=== PATIENT | male | born 1935 | race Hispanic/Latino ===

== ENCOUNTER 2018-10-14 22:13 | Inpatient (IN) | payer OTHER, MEDICARE ==
[~2018-10-14] VITALS: Ht 154.9 cm; Wt 86.5 kg
[~2018-10-14 22:13] MED LIST: ADV250 IH; ATOR40TA69 PO; CARV12.511 PO; GABA-529 PO; IRON PO; ISOS30TA6 PO; PANT40TA25 PO; TAMS0.4C32 PO
[2018-10-14 23:27] LABS: BASOPHILS % (AUTO) 0.1 % (0.0-5.0); EOSINOPHILS % (AUTO) 0.1 % (0.0-8.0); HEMATOCRIT 30.8 % (42-54); LYMPHOCYTES % (AUTO) 7.5 % (21.0-51.0); MEAN CORPUSCULAR HEMOGLOBIN 29.4 pg (27.0-33.0); MEAN CORPUSCULAR HGB CONC 33.2 g/dL (32.0-36.0); MEAN CORPUSCULAR VOLUME 88.5 fL (79-99); MONOCYTES % (AUTO) 9.7 % (3.0-13.0); NEUTROPHILS % (AUTO) 82.6 % (40.0-77.0); PLATELET COUNT (AUTO) 202 K/uL (130-400); RED BLOOD CELL COUNT(AUTO) 3.48 MIL/uL (4.50-6.20); RED CELL DISTRIBUTION WIDTH 13.9 % (11.0-15.5); WHITE BLOOD COUNT (AUTO) 21.3 K/uL (4.8-10.8)
[2018-10-14 23:35] LABS: CREATININE 1.8 mg/dL (0.5-1.5); POTASSIUM 4.4 mmol/L (3.5-5.1)
[2018-10-14 23:40] LABS: ALBUMIN 3.2 g/dL (3.5-5.0); BILIRUBIN,TOTAL 0.7 mg/dL (0.2-1.0)
[2018-10-14 23:48] LABS: APPEARANCE,URINE Clear (CLEAR); BILIRUBIN,URINE Negative (NEGATIVE); COLOR,URINE Yellow (YELLOW); GLUCOSE, URINE (UA) Negative (NEGATIVE); KETONES,URINE Negative (NEGATIVE); LEUKOCYTE ESTERASE ,URINE Negative (NEGATIVE); NITRATE,URINE Negative (NEGATIVE); OCCULT BLOOD,URINE Negative (NEGATIVE); PROTEIN,URINE 300 mg/dL (NEGATIVE); UROBILINOGEN,URINE 0.2 mg/dL (0.2-1.0)
[2018-10-15] MEDS ORDERED: ZOSYN 3.375GM+NS 50ML 50 ML IV ONE (00:07)
[2018-10-15 00:33] LABS: ERYTHROCYTE SEDIMENTATION RATE 92 MM/HR (0-20)
[2018-10-15] MEDS ORDERED: VANCOMYCIN 1GM+NS 250ML 250 ML IV ONE (01:01)
--- NOTE | 2018-10-15 02:37 | NUR ---
ADMISSION. PT TRANSFERRED VIA STRETCHER FROM ER INTO ROOM 310. PT AWAKE, ALERT AND RESPONSIVE AT THIS TIME. NO C/O PAIN OR DISCOMFORT NOTED. PT ORIENTED TO ROOM, CALL DIXON WITHIN REACH. Addendum: 10/15/18 at 0240 by ANNETTE ADAIR RN Amended: Links added.
[2018-10-15 02:44] VITALS: BP 136/68
[2018-10-15] MEDS ORDERED: RANO10003 PO (03:16)
[2018-10-15] MEDS ORDERED: ROSU20TA30 PO (03:16)
[2018-10-15] MEDS ORDERED: FURO20TA6 PO (03:16)
[2018-10-15] MEDS ORDERED: MONT10TA24 PO (03:16)
[2018-10-15] MEDS ORDERED: TRAZ-185 PO (03:16)
[2018-10-15] MEDS ORDERED: GLUCAGON 1MG KIT 1 MG ML IM PRN (03:30)
[2018-10-15] MEDS ORDERED: LABETALOL 20 MG/4 ML DISP.SYRIN IV PRN (03:30)
[2018-10-15] MEDS ORDERED: ACETAMINOPHEN 325 MG TAB PO PRN (03:30)
[2018-10-15] MEDS ORDERED: VANCOMYCIN PROTOCOL PER PHARMACY IV SCH (03:30)
[2018-10-15] MEDS ORDERED: ONDANSETRON HCL 4 MG/2 ML VIAL IVP PRN (03:30)
[2018-10-15] MEDS: SODIUM CHLORIDE 0.9% 1000ML 1,000 ML IV SCH ×3 (03:30→20:20)
[2018-10-15] MEDS ORDERED: DEXTROSE 50%-WATER 50 ML DISP.SYRIN IV PRN (03:30)
[2018-10-15] MEDS: INSULIN R PO SS1 SQ SCH ×2 (06:28→11:30)
[2018-10-15 08:32] VITALS: BP 126/70
[2018-10-15] MEDS: ENOXAPARIN SODIUM 30 MG/0.3 ML SQ SCH (08:59)
--- NOTE | 2018-10-15 10:00 | NUR ---
CM INITIAL CM met w pt and friend at bedside. Pt short of breath, short sentences, states has COPD, bpci paper given. pt had o2 at [facility] with cpap, nebs,; ib[facility] enmanuelder 38 hr a week combined w spouse. Giovanni spouse is not well, son to [employer] transport home. pt would not want to go to a snf; needs to be home for his . DCP home or [facility] if needed CM to follow Addendum: 10/15/18 at 3 by YADY PERSAUD RN CM Amended: Links added.
[2018-10-15] MEDS ORDERED: ALBU8.5H8 IH (11:45)
[2018-10-15] MEDS ORDERED: NITR0.4T50 SL (11:45)
[2018-10-15] MEDS ORDERED: ADV250 IH (11:45)
[2018-10-15] MEDS ORDERED: ALBU2.5V2 IH (11:51)
[2018-10-15 11:54] VITALS: BP 150/66
[2018-10-15] MEDS ORDERED: COMPOUND IV REFRIGERATED 1 EACH IVSOLN MISC PRN (12:00)
[2018-10-15] MEDS: ZOSYN 3.375GM+NS 50ML 50 ML IV SCH (12:40)
[2018-10-15] MEDS ORDERED: IPRATROPIUM/ALBUTEROL SULFATE 3 ML SOLUTION IH ONE (13:14)
[2018-10-15] MEDS ORDERED: TRAZODONE HCL 50 MG TAB PO PRN (14:00)
[2018-10-15 16:46] VITALS: BP 156/66
[2018-10-15] MEDS: FERROUS SULFATE 325 MG TABLET.DR PO SCH (17:39)
[2018-10-15] MEDS: CARVEDILOL 12.5 MG TABLET PO SCH (17:39)
[2018-10-15] MEDS: IPRATROPIUM/ALBUTEROL SULFATE 3 ML SOLUTION IH PRN (19:01)
[2018-10-15] MEDS: BUDESONIDE 0.5 MG/2 ML INH IH SCH (19:02)
[2018-10-15 19:24] VITALS: BP 145/59
[2018-10-15] MEDS: RANOLAZINE 500 MG TAB.SR.12H PO SCH (20:14)
[2018-10-15] MEDS: GABAPENTIN 100 MG CAPSULE PO SCH (20:14)
[2018-10-15] MEDS: TAMSULOSIN HCL 0.4 MG CAP.ER.24H PO SCH (20:15)
[2018-10-15] MEDS: ATORVASTATIN CALCIUM 40 MG TABLET PO SCH (20:15)
[2018-10-15] MEDS ORDERED: SUB TO BREO ELLIPTA 100MCG/25MCG PER P&T IH SCH (21:00)
[2018-10-15 23:00] VITALS: BP 153/55
[2018-10-16] MEDS: ZOSYN 3.375GM+NS 50ML 50 ML IV SCH ×2 (00:07→16:48)
[2018-10-16] MEDS: VANCOMYCIN 1.25 GM in SODIUM CHLORIDE 0.9% 250 ML IV SCH (01:50)
[2018-10-16 03:32] VITALS: BP 104/47
[2018-10-16 04:57] LABS: BASOPHILS % (AUTO) 0.3 % (0.0-5.0); EOSINOPHILS % (AUTO) 1.1 % (0.0-8.0); HEMATOCRIT 27.7 % (42-54); LYMPHOCYTES % (AUTO) 17.8 % (21.0-51.0); MEAN CORPUSCULAR HEMOGLOBIN 29.9 pg (27.0-33.0); MEAN CORPUSCULAR HGB CONC 33.4 g/dL (32.0-36.0); MEAN CORPUSCULAR VOLUME 89.4 fL (79-99); MONOCYTES % (AUTO) 8.1 % (3.0-13.0); NEUTROPHILS % (AUTO) 72.7 % (40.0-77.0); PLATELET COUNT (AUTO) 162 K/uL (130-400); RED CELL DISTRIBUTION WIDTH 13.9 % (11.0-15.5); WHITE BLOOD COUNT (AUTO) 10.3 K/uL (4.8-10.8)
[2018-10-16 05:04] LABS: CREATININE 1.5 mg/dL (0.5-1.5); POTASSIUM 3.7 mmol/L (3.5-5.1)
[2018-10-16 07:30] VITALS: BP 144/65
[2018-10-16] MEDS: IPRATROPIUM/ALBUTEROL SULFATE 3 ML SOLUTION IH PRN ×2 (07:30→18:13)
[2018-10-16] MEDS: BUDESONIDE 0.5 MG/2 ML INH IH SCH ×2 (07:30→18:13)
[2018-10-16] MEDS: FERROUS SULFATE 325 MG TABLET.DR PO SCH ×2 (09:40→16:48)
[2018-10-16] MEDS: MONTELUKAST SODIUM 10 MG TAB PO SCH (09:40)
[2018-10-16] MEDS: CARVEDILOL 12.5 MG TABLET PO SCH ×2 (09:41→16:48)
[2018-10-16] MEDS: RANOLAZINE 500 MG TAB.SR.12H PO SCH ×2 (09:41→20:02)
[2018-10-16] MEDS: FUROSEMIDE 20 MG TABLET PO SCH (09:43)
[2018-10-16] MEDS: ISOSORBIDE MONO 30MG TAB SR PO SCH (09:44)
[2018-10-16] MEDS: ENOXAPARIN SODIUM 30 MG/0.3 ML SQ SCH (09:45)
[2018-10-16 11:00] VITALS: BP 134/51
[2018-10-16 16:00] VITALS: BP 143/58
[2018-10-16 19:10] VITALS: BP 112/83
[2018-10-16] MEDS: GABAPENTIN 100 MG CAPSULE PO SCH (20:02)
[2018-10-16] MEDS: ATORVASTATIN CALCIUM 40 MG TABLET PO SCH (20:02)
[2018-10-16] MEDS: TAMSULOSIN HCL 0.4 MG CAP.ER.24H PO SCH (20:02)
[2018-10-16] MEDS: SODIUM CHLORIDE 0.9% 1000ML 1,000 ML IV SCH (20:04)
[2018-10-16] MEDS ORDERED: MAG HYDROX/AL HYDROX/SIMETH ES 30 ML SUSP UDCUP PO PRN (22:45)
[2018-10-17 00:02] VITALS: BP 144/94
[2018-10-17] MEDS: VANCOMYCIN 1.25 GM in SODIUM CHLORIDE 0.9% 250 ML IV SCH ×2 (01:13→23:23)
[2018-10-17 04:08] VITALS: BP 143/72
[2018-10-17] MEDS: ZOSYN 3.375GM+NS 50ML 50 ML IV SCH ×3 (04:28→23:23)
[2018-10-17] MEDS: BUDESONIDE 0.5 MG/2 ML INH IH SCH ×2 (06:25→18:15)
[2018-10-17] MEDS: IPRATROPIUM/ALBUTEROL SULFATE 3 ML SOLUTION IH PRN (06:38)
[2018-10-17 08:00] VITALS: BP 149/76
[2018-10-17] MEDS: ENOXAPARIN SODIUM 30 MG/0.3 ML SQ SCH (08:13)
[2018-10-17] MEDS: RANOLAZINE 500 MG TAB.SR.12H PO SCH ×2 (08:13→20:26)
[2018-10-17] MEDS: FUROSEMIDE 20 MG TABLET PO SCH (08:14)
[2018-10-17] MEDS: ISOSORBIDE MONO 30MG TAB SR PO SCH (08:15)
[2018-10-17] MEDS: FERROUS SULFATE 325 MG TABLET.DR PO SCH ×2 (08:15→17:35)
[2018-10-17] MEDS: MONTELUKAST SODIUM 10 MG TAB PO SCH (08:15)
[2018-10-17] MEDS: CARVEDILOL 12.5 MG TABLET PO SCH ×2 (08:16→17:35)
[2018-10-17] MEDS: SODIUM CHLORIDE 0.9% 1000ML 1,000 ML IV SCH ×2 (08:50→21:46)
[2018-10-17 11:51] VITALS: BP 127/46
[2018-10-17 16:00] VITALS: BP 113/56
[2018-10-17 19:05] VITALS: BP 129/25
[2018-10-17] MEDS: GABAPENTIN 100 MG CAPSULE PO SCH (20:26)
[2018-10-17] MEDS: ATORVASTATIN CALCIUM 40 MG TABLET PO SCH (20:26)
[2018-10-17] MEDS: TAMSULOSIN HCL 0.4 MG CAP.ER.24H PO SCH (20:26)
--- NOTE | 2018-10-17 20:30 | NUR ---
MEDS DUE MEDS ADMINISTERED, TOLERATED WELL. 2 PIVS INSERTED TO RT HAND, TOLERATED WELL. KEPT RESTED AND COMFORTABLE. CALL LIGHT WITHIN REACH. WILL CONTINUE TO MONITOR. Addendum: 10/17/18 at 2231 by MOUNIKA LOZOYA RN RN Amended: Links added.
--- NOTE | 2018-10-17 22:30 | NUR ---
CPAP RT WAS IN AND ASSISTED PT WITH HOME CPAP MACHINE. ENCOURAGED TO REST AND SLEEP. WILL CONTINUE TO MONITOR.
[2018-10-18 00:03] VITALS: BP 128/53
--- NOTE | 2018-10-18 01:53 | NUR ---
ROUNDS PT RESTING WELL, FAIRLY ASLEEP ON CPAP MACHINE. KEPT UNDISTURBED FOR NOW. CALL LIGHT WITHIN REACH. WILL MONITOR PT.
[2018-10-18 04:05] VITALS: BP 146/68
--- NOTE | 2018-10-18 06:00 | NUR ---
ROUNDS PT STILL FAIRLY ASLEEP. NO DISTRESS NOTED. KEPT UNDISTURBED. FOR MORE CARE.
[2018-10-18 06:19] LABS: BASOPHILS % (AUTO) 0.5 % (0.0-5.0); EOSINOPHILS % (AUTO) 1.8 % (0.0-8.0); LYMPHOCYTES % (AUTO) 16.1 % (21.0-51.0); MEAN CORPUSCULAR HEMOGLOBIN 29.4 pg (27.0-33.0); MEAN CORPUSCULAR HGB CONC 33.2 g/dL (32.0-36.0); MEAN CORPUSCULAR VOLUME 88.7 fL (79-99); NEUTROPHILS % (AUTO) 71.6 % (40.0-77.0); PLATELET COUNT (AUTO) 194 K/uL (130-400); RED BLOOD CELL COUNT(AUTO) 3.04 MIL/uL (4.50-6.20); RED CELL DISTRIBUTION WIDTH 13.9 % (11.0-15.5); WHITE BLOOD COUNT (AUTO) 6.8 K/uL (4.8-10.8)
[2018-10-18] MEDS: IPRATROPIUM/ALBUTEROL SULFATE 3 ML SOLUTION IH PRN (06:31)
[2018-10-18] MEDS: BUDESONIDE 0.5 MG/2 ML INH IH SCH (06:31)
[2018-10-18 06:51] LABS: CREATININE 1.4 mg/dL (0.5-1.5); POTASSIUM 4.1 mmol/L (3.5-5.1)
[2018-10-18] MEDS: ISOSORBIDE MONO 30MG TAB SR PO SCH (07:48)
[2018-10-18] MEDS: RANOLAZINE 500 MG TAB.SR.12H PO SCH (07:48)
[2018-10-18] MEDS: CARVEDILOL 12.5 MG TABLET PO SCH ×2 (07:49→16:53)
[2018-10-18] MEDS: FERROUS SULFATE 325 MG TABLET.DR PO SCH ×2 (07:49→16:52)
[2018-10-18] MEDS: FUROSEMIDE 20 MG TABLET PO SCH (07:49)
[2018-10-18] MEDS: ENOXAPARIN SODIUM 30 MG/0.3 ML SQ SCH (07:54)
[2018-10-18 08:00] VITALS: BP 142/55
[2018-10-18] MEDS: MONTELUKAST SODIUM 10 MG TAB PO SCH (10:17)
[2018-10-18 11:46] VITALS: BP 116/50
[2018-10-18] MEDS: ZOSYN 3.375GM+NS 50ML 50 ML IV SCH (11:56)
[2018-10-18] MEDS: SODIUM CHLORIDE 0.9% 1000ML 1,000 ML IV SCH (11:57)
--- NOTE | 2018-10-18 12:01 | NUR ---
ASST. TO CHAIR FOR LUNCH.
[2018-10-18 16:00] VITALS: BP 165/72
[2018-10-18 16:53] VITALS: BP 116/50
[2018-10-18] MEDS ORDERED: CLIN300C9 PO (17:09)
--- NOTE | 2018-10-18 18:36 | NUR ---
DISCHARGED NOW USING TEACH BACK. RX FOR CLINDAMYCIN GIVEN AND TO FOLLOW UP WITH PCP IN 3 TO 5 DAYS.SON PRESENT AT TIME OF DISCHARGE AND VERBALIZES UNDERSTANDING OF ALL INST. GIVEN. SALINE LOCKS XS.2 INTACT. REMOVED. PLACED IN OWN W/C AND WHEELED TO PRIVATE CAR PER OUR CARRIER ASSOCIATE.
== END 2018-10-18 18:43 | disposition home or self-care (01) | DRG 872 ==
LOC: EDH 22:13 → EDHIP 10-15 00:55 → OBSVTOIN 10-15 00:55 → 3BH 10-15 02:20
PROVIDERS: ADMIT Internal Medicine Pulmonary Disease; ATTEND Internal Medicine Pulmonary Disease
DX: A41.9 Sepsis, unspecified organism (principal); L03.116 Cellulitis of left lower limb; D50.9 Iron deficiency anemia, unspecified; N18.3 Chronic kidney disease, stage 3 (moderate); I12.9 Hypertensive chronic kidney disease with stage 1 through stage 4 chronic kidney disease, or unspecified chronic kidney disease; E66.9 Obesity, unspecified; E78.5 Hyperlipidemia, unspecified; I25.10 Atherosclerotic heart disease of native coronary artery without angina pectoris; N40.0 Benign prostatic hyperplasia without lower urinary tract symptoms; Z68.36 Body mass index [BMI] 36.0-36.9, adult
CPT/HCPCS: 36415; 80048; 80053; 80202; 81003; 82948; 83605; 85025; 85651; 87040; 93971; 94640; 94664; G0378; J1650; J2543; J3370; J7030

== ENCOUNTER → 2019-09-01 | Outpatient (CLI) | payer OTHER, MEDICARE ==
[~2019-09-01] MED LIST changes: +ALBU2.5V2 IH; +ALBU8.5H8 IH; -ATOR40TA69 PO; +CLIN300C9 PO; +FURO20TA6 PO; +MONT10TA26 PO; +NITR0.4T50 SL; +RANO10003 PO; +ROSU20TA31 PO; +TRAZ-185 PO
== END | disposition home or self-care (01) ==
LOC: RAH 08:03
PROVIDERS: ATTEND Internal Medicine Cardiovascular Disease
DX: R06.00 Dyspnea, unspecified (principal)
CPT/HCPCS: 36415; 71046; 83880

== ENCOUNTER 2019-12-02 10:15 | Emergency (ER) | payer OTHER, MEDICARE ==
[~2019-12-02 10:15] MED LIST changes: -PANT40TA25 PO; +PANT40TA54 PO
[2019-12-02 11:21] LABS: CREATININE 2.6 mg/dL (0.5-1.5); POTASSIUM 4.5 mmol/L (3.5-5.1)
[2019-12-02 11:31] LABS: BASOPHILS % (AUTO) 0.4 % (0.0-5.0); EOSINOPHILS % (AUTO) 5.1 % (0.0-8.0); HEMATOCRIT 26.7 % (42-54); LYMPHOCYTES % (AUTO) 23.8 % (21.0-51.0); MEAN CORPUSCULAR HEMOGLOBIN 30.2 pg (27.0-33.0); MEAN CORPUSCULAR VOLUME 91.8 fL (79-99); MONOCYTES % (AUTO) 12.9 % (3.0-13.0); NEUTROPHILS % (AUTO) 57.4 % (40.0-77.0); PLATELET COUNT (AUTO) 203 K/uL (130-400); RED BLOOD CELL COUNT(AUTO) 2.91 MIL/uL (4.50-6.20); RED CELL DISTRIBUTION WIDTH 12.5 % (11.0-15.5); WHITE BLOOD COUNT (AUTO) 7.1 K/uL (4.8-10.8)
== END 2019-12-02 16:51 | disposition home or self-care (01) ==
LOC: EDH 10:15
DX: R06.00 Dyspnea, unspecified (principal); I25.10 Atherosclerotic heart disease of native coronary artery without angina pectoris; E78.5 Hyperlipidemia, unspecified; I10 Essential (primary) hypertension; Z88.6 Allergy status to analgesic agent
CPT/HCPCS: 36415; 71046; 78582; 80048; 85025; 93005; 99285; A9540; A9558

== ENCOUNTER → 2020-04-24 | Outpatient (CLI) | payer OTHER, MEDICARE | END | disposition home or self-care (01) | LOC: OIH 08:42 | PROVIDERS: ATTEND Internal Medicine Cardiovascular Disease | DX: I70.0 Atherosclerosis of aorta (principal); R06.00 Dyspnea, unspecified; I50.31 Acute diastolic (congestive) heart failure | CPT/HCPCS: 71046 ==

== ENCOUNTER 2020-06-08 10:17 | Inpatient (IN) | payer OTHER, MEDICARE ==
[~2020-06-08] VITALS: Ht 154.9 cm; Wt 77.4 kg
[~2020-06-08 10:17] MED LIST changes: +CLIN300C10 PO; -CLIN300C9 PO; -MONT10TA26 PO; +MONT10TA96 PO
[2020-06-08] MEDS ORDERED: ALBUTEROL INHALER 90MCG/INH IH ONE (11:15)
[2020-06-08] MEDS ORDERED: SODIUM CHLORIDE 0.9% 1000ML 1,000 ML IV ONE (11:15)
[2020-06-08] MEDS ORDERED: METHYLPREDNISOLONE SOD SUCC 125MG/2ML VIAL ONE (11:15)
[2020-06-08 11:20] LABS: HEMATOCRIT 28.5 % (42-54); LYMPHOCYTES % (AUTO) 12.1 % (21.0-51.0); MEAN CORPUSCULAR HEMOGLOBIN 30.3 pg (27.0-33.0); MEAN CORPUSCULAR HGB CONC 33.3 g/dL (32.0-36.0); MEAN CORPUSCULAR VOLUME 90.8 fL (79-99); MONOCYTES % (AUTO) 6.5 % (3.0-13.0); NEUTROPHILS % (AUTO) 80.9 % (40.0-77.0); PLATELET COUNT (AUTO) 230 K/uL (130-400); RED BLOOD CELL COUNT(AUTO) 3.14 MIL/uL (4.50-6.20); RED CELL DISTRIBUTION WIDTH 12.4 % (11.0-15.5); WHITE BLOOD COUNT (AUTO) 9.4 K/uL (4.8-10.8)
[2020-06-08 11:26] LABS: CREATININE 3.5 mg/dL (0.5-1.5); POTASSIUM 4.4 mmol/L (3.5-5.1)
[2020-06-08 11:36] LABS: ALBUMIN 2.8 g/dL (3.5-5.0); BILIRUBIN,TOTAL 0.4 mg/dL (0.2-1.0); CRP QUANTITATIVE 37.2 mg/L (0.00-9.0); TOTAL PROTEIN, SERUM 6.6 g/dL (6.0-8.3); TROPONIN I 0.09 ng/mL (0.00-0.06)
[2020-06-08] MEDS ORDERED: IVERMECTIN 3 MG TAB PO SCH (11:45)
[2020-06-08 11:54] LABS: INR 0.93 (0.85-1.15)
[2020-06-08 11:55] LABS: PARTIAL THROMBOPLASTIN TIME 28.4 SEC (26.3-35.5)
[2020-06-08] MEDS ORDERED: ACETAMINOPHEN 650 MG SUPPOSITORY RC PRN (15:00)
[2020-06-08] MEDS ORDERED: ONDANSETRON HCL 4 MG/2 ML VIAL IVP PRN (15:00)
[2020-06-08] MEDS ORDERED: TEMAZEPAM 15 MG CAPSULE PO PRN (15:00)
[2020-06-08] MEDS ORDERED: RENAL DOSE IV PRN (15:15)
[2020-06-08] MEDS ORDERED: ALBUTEROL INHALER 90MCG/INH IH PRN (15:15)
[2020-06-08] MEDS ORDERED: IPRATROPIUM 0.5 MG/2.5 ML INH IH PRN (15:15)
[2020-06-08 16:27] LABS: TROPONIN I 0.09 ng/mL (0.00-0.06)
[2020-06-08] MEDS: INSULIN HUMULIN R 100 UNIT/ML 3ML SQ SCH ×2 (16:30→21:18)
[2020-06-08 16:48] VITALS: BP 133/84
[2020-06-08] MEDS ORDERED: LEVOFLOXACIN 500 MG/D5W 100 ML IV ONE (17:00)
[2020-06-08] MEDS ORDERED: LEVOFLOXACIN 500 MG/D5W 100 ML 100 ML IV ONE (17:15)
[2020-06-08] MEDS: PHARMACY COMMUNICATION MISC SCH (17:45)
[2020-06-08] MEDS ORDERED: AEC81 PO (17:46)
[2020-06-08] MEDS ORDERED: ASCO500C18 PO (17:46)
[2020-06-08] MEDS ORDERED: TORS20TA4 PO (17:46)
[2020-06-08] MEDS ORDERED: GUAI5SYR4 PO (17:46)
[2020-06-08] MEDS ORDERED: FERR325T22 PO (17:46)
[2020-06-08] MEDS ORDERED: PRED20TA3 PO (17:46)
[2020-06-08] MEDS ORDERED: AZIT250T9 PO (17:46)
[2020-06-08 18:37] LABS: APPEARANCE,URINE SL CLOUDY (CLEAR); BILIRUBIN,URINE NEGATIVE (NEGATIVE); COLOR,URINE YELLOW (YELLOW); GLUCOSE, URINE (UA) NEGATIVE (NEGATIVE); KETONES,URINE NEGATIVE (NEGATIVE); LEUKOCYTE ESTERASE ,URINE NEGATIVE (NEGATIVE); NITRATE,URINE NEGATIVE (NEGATIVE); OCCULT BLOOD,URINE MODERATE (NEGATIVE); PH,URINE 5.5 (5.0-8.0); PROTEIN,URINE 100 mg/dL (NEGATIVE); UROBILINOGEN,URINE 0.2 mg/dL (0.2-1.0)
[2020-06-08 18:53] LABS: AMORPHOUS SEDIMENT,UR Few /LPF (None Seen); BACTERIA,URINE Few /HPF (None Seen); MUCUS,URINE Few LPF (None Seen); SQUAMOUS EPITHELIAL CELL,UR Few /HPF (0-2)
[2020-06-08] MEDS: ENOXAPARIN SODIUM 40 MG/0.4 ML SYRINGE SQ SCH (20:08)
[2020-06-08] MEDS: FAMOTIDINE 20MG TAB 20 MG TAB PO SCH (20:08)
[2020-06-08] MEDS: SIMVASTATIN 20 MG TABLET PO SCH (20:08)
[2020-06-08 20:26] VITALS: BP 152/70
[2020-06-08 21:59] LABS: TROPONIN I 0.05 ng/mL (0.00-0.06)
[2020-06-08 23:30] VITALS: BP 155/62
[2020-06-09] MEDS: PHARMACY COMMUNICATION MISC SCH ×4 (01:45→22:08)
[2020-06-09 03:23] VITALS: BP 190/66
[2020-06-09] MEDS: CLONIDINE HCL 0.1 MG TABLET PO PRN (03:45)
[2020-06-09 04:17] LABS: MEAN CORPUSCULAR HEMOGLOBIN 29.7 pg (27.0-33.0); MEAN CORPUSCULAR HGB CONC 32.4 g/dL (32.0-36.0); MEAN CORPUSCULAR VOLUME 91.8 fL (79-99); RED BLOOD CELL COUNT(AUTO) 3.16 MIL/uL (4.50-6.20); RED CELL DISTRIBUTION WIDTH 12.3 % (11.0-15.5); WHITE BLOOD COUNT (AUTO) 8.6 K/uL (4.8-10.8)
[2020-06-09 04:23] LABS: HEMOGLOBIN A1C 5.9 % (4.0-6.0)
[2020-06-09 04:46] LABS: ALBUMIN 2.6 g/dL (3.5-5.0); BILIRUBIN,TOTAL 0.3 mg/dL (0.2-1.0); CREATININE 3.1 mg/dL (0.5-1.5); CRP QUANTITATIVE 97.3 mg/L (0.00-9.0); MAGNESIUM 2.2 mg/dL (1.80-2.40); POTASSIUM 4.5 mmol/L (3.5-5.1); THYROID STIMULATING HORMONE 0.4 uIU/mL (0.36-3.74); TOTAL PROTEIN, SERUM 6.6 g/dL (6.0-8.3); TROPONIN I 0.05 ng/mL (0.00-0.06)
[2020-06-09] MEDS: INSULIN HUMULIN R 100 UNIT/ML 3ML SQ SCH ×4 (06:31→19:51)
[2020-06-09 08:00] VITALS: BP 159/61
[2020-06-09] MEDS: DEXAMETHASONE SOD PHOSPHATE 10MG/ML 1ML VIAL IVP SCH (09:00)
[2020-06-09] MEDS: PANTOPRAZOLE SODIUM 40 MG TABLET.DR PO SCH (09:34)
[2020-06-09] MEDS: POLYETHYLENE GLYCOL 3350 17 GM POWD.PACK PO SCH (09:34)
[2020-06-09] MEDS: ASCORBIC ACID 500 MG TAB PO SCH (09:35)
[2020-06-09] MEDS: ASPIRIN 81MG TAB.CHEW PO SCH (09:35)
[2020-06-09] MEDS ORDERED: DEXAMETHASONE SOD PHOSPHATE 4 MG/ML 1ML VIAL ONE (11:59)
[2020-06-09 12:51] VITALS: BP 159/68
[2020-06-09 16:00] VITALS: BP 155/81
--- NOTE | 2020-06-09 17:05 | NUR ---
SPOKE TO DELISA TEJEDA ON THE PHONE FOR DC PLANNING. STATES PT AND SPOUSE BOTH HAVE MOBILITY ISSUES- PT USES A WHEELCHAIR MOSTLY BUT TRANSFERS INDEPENDENTLY. STATES THAT HOME IS SAFE AND ACCESSIBLE- SHOWER CHAIR, RAMP, ETC, STATES PATIENT HAS NEBULIZER AND USES THROUGHOUT THE DAY WELL A RESCUE INHALER AND CPAP, STATES SEES JODI AT [facility], DR CHISHOLM FOR HIS LUNGS, [facility] FOR HIS HEART, AND [facility] FOR HIS KIDNEYS GOAL WOULD BE TO GE HOME WITH SOON POSSIBLE, UNDERSTANS THAT PT S LUNGS ARE MORE COMPROMISE DAND MAY TAKE LONGER THAN EXPECTED TO RECOVER. CM TO FOLLOW WITH DC PLANNING WHEN APPROPRIATE Addendum: 06/09/20 at 1711 by YADY PERSAUD RN CM Amended: Links added.
[2020-06-09 20:04] VITALS: BP 104/82
[2020-06-09] MEDS: FAMOTIDINE 20MG TAB 20 MG TAB PO SCH (20:06)
[2020-06-09] MEDS: ENOXAPARIN SODIUM 40 MG/0.4 ML SYRINGE SQ SCH (20:06)
[2020-06-09] MEDS: SIMVASTATIN 20 MG TABLET PO SCH (20:06)
[2020-06-10] VITALS (7 sets, daily range): BP systolic 120–171; BP diastolic 53–85
[2020-06-10 03:54] LABS: ABG BASE EXCESS 0.3 mmol/L (-2.0-3.0); ABG HCO3 24.7 mmol/L (21.0-28.0); ABG PCO2 39 mmHg (35-48)
[2020-06-10] MEDS: CLONIDINE HCL 0.1 MG TABLET PO PRN (04:20)
[2020-06-10 04:44] LABS: BASOPHILS % (AUTO) 0.1 % (0.0-5.0); HEMATOCRIT 28.8 % (42-54); LYMPHOCYTES % (AUTO) 6.2 % (21.0-51.0); MEAN CORPUSCULAR VOLUME 90.9 fL (79-99); MONOCYTES % (AUTO) 5.6 % (3.0-13.0); NEUTROPHILS % (AUTO) 87.4 % (40.0-77.0); PLATELET COUNT (AUTO) 261 K/uL (130-400); RED BLOOD CELL COUNT(AUTO) 3.17 MIL/uL (4.50-6.20); RED CELL DISTRIBUTION WIDTH 12.4 % (11.0-15.5); WHITE BLOOD COUNT (AUTO) 13.1 K/uL (4.8-10.8)
[2020-06-10 05:15] LABS: ALBUMIN 2.5 g/dL (3.5-5.0); BILIRUBIN,TOTAL 0.4 mg/dL (0.2-1.0); CREATININE 2.7 mg/dL (0.5-1.5); CRP QUANTITATIVE 66.9 mg/L (0.00-9.0); PHOSPHORUS 3.4 mg/dL (2.5-4.9); POTASSIUM 4.3 mmol/L (3.5-5.1); TOTAL PROTEIN, SERUM 6.6 g/dL (6.0-8.3)
[2020-06-10] MEDS: INSULIN HUMULIN R 100 UNIT/ML 3ML SQ SCH ×4 (05:22→20:17)
[2020-06-10] MEDS: ASCORBIC ACID 500 MG TAB PO SCH (08:47)
[2020-06-10] MEDS: POLYETHYLENE GLYCOL 3350 17 GM POWD.PACK PO SCH (08:47)
[2020-06-10] MEDS: ASPIRIN 81MG TAB.CHEW PO SCH (08:47)
[2020-06-10] MEDS: Vitamin B Complex/Vit C/Folic Acid PO SCH (08:47)
[2020-06-10] MEDS: PANTOPRAZOLE SODIUM 40 MG TABLET.DR PO SCH (08:47)
[2020-06-10] MEDS: DEXAMETHASONE SOD PHOSPHATE 10MG/ML 1ML VIAL IVP SCH (09:00)
[2020-06-10] MEDS: PHARMACY COMMUNICATION MISC SCH (09:45)
[2020-06-10] MEDS: ACETAMINOPHEN 325 MG TAB PO PRN ×2 (11:43→12:26)
[2020-06-10] MEDS ORDERED: LEVOFLOXACIN 250 MG/D5W 50ML 50 ML IVPB SCH (17:00)
[2020-06-10] MEDS: SIMVASTATIN 20 MG TABLET PO SCH (20:54)
[2020-06-10] MEDS: FAMOTIDINE 20MG TAB 20 MG TAB PO SCH (20:54)
[2020-06-10] MEDS: ENOXAPARIN SODIUM 40 MG/0.4 ML SYRINGE SQ SCH (20:54)
[2020-06-11 03:19] VITALS: BP 188/84
[2020-06-11] MEDS: CLONIDINE HCL 0.1 MG TABLET PO PRN (03:56)
[2020-06-11 04:08] LABS: BASOPHILS % (AUTO) 0.1 % (0.0-5.0); HEMATOCRIT 28.1 % (42-54); MEAN CORPUSCULAR HEMOGLOBIN 30.3 pg (27.0-33.0); MEAN CORPUSCULAR HGB CONC 33.5 g/dL (32.0-36.0); MEAN CORPUSCULAR VOLUME 90.6 fL (79-99); MONOCYTES % (AUTO) 4.9 % (3.0-13.0); NEUTROPHILS % (AUTO) 86.4 % (40.0-77.0); PLATELET COUNT (AUTO) 260 K/uL (130-400); RED CELL DISTRIBUTION WIDTH 12.3 % (11.0-15.5); WHITE BLOOD COUNT (AUTO) 12.4 K/uL (4.8-10.8)
[2020-06-11 04:22] LABS: ALBUMIN 2.2 g/dL (3.5-5.0); BILIRUBIN,TOTAL 0.4 mg/dL (0.2-1.0); CREATININE 2.5 mg/dL (0.5-1.5); CRP QUANTITATIVE 92.3 mg/L (0.00-9.0); PHOSPHORUS 3.5 mg/dL (2.5-4.9); POTASSIUM 4.3 mmol/L (3.5-5.1); TOTAL PROTEIN, SERUM 6.1 g/dL (6.0-8.3)
[2020-06-11] MEDS: INSULIN HUMULIN R 100 UNIT/ML 3ML SQ SCH (05:34)
[2020-06-11 07:39] LABS: ABG HCO3 22.8 mmol/L (21.0-28.0); ABG OXYGEN SATURATION 90.4 % (95.0-99.0); ABG PCO2 32 mmHg (35-48)
[2020-06-11 08:41] VITALS: BP 189/73
[2020-06-11] MEDS: DEXAMETHASONE SOD PHOSPHATE 10MG/ML 1ML VIAL IVP SCH (09:28)
[2020-06-11] MEDS: POLYETHYLENE GLYCOL 3350 17 GM POWD.PACK PO SCH (09:29)
[2020-06-11] MEDS: ASCORBIC ACID 500 MG TAB PO SCH (09:29)
[2020-06-11] MEDS: ASPIRIN 81MG TAB.CHEW PO SCH (09:29)
[2020-06-11] MEDS: Vitamin B Complex/Vit C/Folic Acid PO SCH (09:30)
[2020-06-11] MEDS: PANTOPRAZOLE SODIUM 40 MG TABLET.DR PO SCH (09:30)
--- NOTE | 2020-06-11 10:17 | NUR ---
Assessment note: Patient resting well.This RN introduced self and morning meds given. Assessment completed and patient denied pain. Call light within reach. Addendum: 06/11/20 at 1019 by EDUARDA GUTHRIE RN RN Amended: Links added.
[2020-06-11 12:00] VITALS: BP 187/76
--- NOTE | 2020-06-11 12:30 | NUR ---
Home O2 Trigger received for home O2 set up. Spoke w pt's son Lloyd via phone. Discussed Md orders, ANGEL/PC consent obtained for [facility]. Per pt's son, pt currently has DME thru [facility]. O2 scripts pending Md signature at this time. Informed pt's son that if [facility] is unable to deliver O2 today, this CM would try to set up pt w [facility] O[facility] as a loan. He verbalizes understanding. CM to continue to follow.
[2020-06-11] MEDS ORDERED: DEXA6TAB7 PO (12:31)
[2020-06-11] MEDS ORDERED: LEVO250S3 PO (12:31)
--- NOTE | 2020-06-11 16:50 | NUR ---
Home O2 Order received for home O2, script and O2 order forms faxed to [facility]. Spoke w pts son Lloyd. He states that [facility] has already contacted him and were on the way to deliver equipment. Primary and Charge nurse updated.
[2020-06-11] MEDS ORDERED: CARVEDILOL 12.5 MG TABLET PO SCH (17:00)
--- NOTE | 2020-06-11 18:36 | NUR ---
PATIENT DISCHARGED: Patient's son was called and updated on discharge. All discharge information went over with son of patient and he understood. Patient's son was on his way to pick patient up and will be waiting at the ER entrance. Patient dressed, IV removed, discharge information signed by patient and patient taken to ER entrance in wheelchair and portable oxygen at 1lpm NC. Son of patient helped him into care and put him on his home portable tank at 1LPM NC. Discharge information packet given to son of patient.
[2020-06-11] MEDS ORDERED: GABAPENTIN 100 MG CAPSULE PO SCH (21:00)
[2020-06-11] MEDS ORDERED: TAMSULOSIN HCL 0.4 MG CAP.ER.24H PO SCH (21:00)
[2020-06-12] MEDS ORDERED: ISOSORBIDE MONO 30MG TAB SR PO SCH (09:00)
[2020-06-12] MEDS ORDERED: MONTELUKAST SODIUM 10 MG TAB PO SCH (09:00)
[2020-06-12] MEDS ORDERED: TORSEMIDE 20 MG TAB PO SCH (09:00)
== END 2020-06-11 18:25 | disposition home or self-care (01) | DRG 177 ==
LOC: EDH 10:17 → EDHIP 14:47 → 2AH 16:12
PROVIDERS: ADMIT Internal Medicine Critical Care Medicine; ATTEND Internal Medicine Critical Care Medicine
PROC: 5A09357 Assistance with Respiratory Ventilation, Less than 24 Consecutive Hours, Continuous Positive Airway Pressure (ICD-10-PCS; principal; 2020-06-08)
PROC: 5A09357 Assistance with Respiratory Ventilation, Less than 24 Consecutive Hours, Continuous Positive Airway Pressure (ICD-10-PCS; 2020-06-10)
DX: U07.1 COVID-19 (principal); J12.89 Other viral pneumonia; J96.01 Acute respiratory failure with hypoxia; G81.91 Hemiplegia, unspecified affecting right dominant side; J44.0 Chronic obstructive pulmonary disease with (acute) lower respiratory infection; J44.1 Chronic obstructive pulmonary disease with (acute) exacerbation; N17.9 Acute kidney failure, unspecified; J98.11 Atelectasis; I12.9 Hypertensive chronic kidney disease with stage 1 through stage 4 chronic kidney disease, or unspecified chronic kidney disease; I25.10 Atherosclerotic heart disease of native coronary artery without angina pectoris; K21.9 Gastro-esophageal reflux disease without esophagitis; E78.5 Hyperlipidemia, unspecified; E11.22 Type 2 diabetes mellitus with diabetic chronic kidney disease; E66.9 Obesity, unspecified; N18.9 Chronic kidney disease, unspecified; E11.40 Type 2 diabetes mellitus with diabetic neuropathy, unspecified; N40.0 Benign prostatic hyperplasia without lower urinary tract symptoms; G89.29 Other chronic pain; M54.9 Dorsalgia, unspecified; R54 Age-related physical debility; R79.89 Other specified abnormal findings of blood chemistry; Z99.3 Dependence on wheelchair; Z95.5 Presence of coronary angioplasty implant and graft; Z87.891 Personal history of nicotine dependence; Z87.01 Personal history of pneumonia (recurrent); Z83.3 Family history of diabetes mellitus; Z79.82 Long term (current) use of aspirin; Z68.32 Body mass index [BMI] 32.0-32.9, adult; Z79.899 Other long term (current) drug therapy
CPT/HCPCS: 36415; 36600; 71045; 71250; 80053; 81001; 82550; 82728; 82803; 82948; 83036; 83605; 83615; 83735; 83874; 83880; 84100; 84145; 84443; 84484; 85025; 85027; 85378; 85610; 85651; 85730; 86140; 86900; 86901; 87040; 87071; 87077; 87088; 87186; 87205; 87426; 87804; 93005; 94660; 94667; 94668; G0378; J1100; J1650; J1815; J1956; J2930; J7030